=== PATIENT | female | born 1985 | race Caucasian/White ===

== ENCOUNTER 2021-04-20 20:13 | Emergency (ER) | payer OTHER ==
[~2021-04-20] VITALS: Ht 165.1 cm; Wt 54.5 kg
[2021-04-20] MEDS ORDERED: ATIVAN 0.50.5 MG/TAB PO (22:21)
[2021-04-20 22:38] VITALS: BP 110/62; PULSE 68; TEMP 97.8
== END 2021-04-20 22:39 | disposition home or self-care (01) ==
LOC: COL.ER 20:13
DX: F41.9 Anxiety disorder, unspecified (principal)